=== PATIENT | male | born 2000 | race African-American/Black ===

== ENCOUNTER 2024-06-30 16:37 | Observation (INO) | payer SELFPAY ==
[~2024-06-30] VITALS: Ht 188 cm; Wt 100.6 kg
[2024-06-30 17:19] LABS: BASO % 0.7 % (0.0-2.0); EOS # 0.1 K/mm3 (0.0-0.7); EOS % 1.6 % (0.0-4.0); GRAN % 70.9 % (42.2-75.2); HEMATOCRIT 43.6 % (42.0-52.0); HEMOGLOBIN 15.4 g/dl (13.5-18.0); LYMPH # 0.9 K/mm3 (1.2-3.4); LYMPH % 15.4 % (20.0-51.0); MEAN CELL VOLUME 90 fl (80.0-100.0); MEAN CORPUSCULAR HEMOGLOBIN 32 pg (27-31); MEAN CORPUSCULAR HGB CONC 35 g/dl (33.0-37.0); MEAN PLATELET VOLUME 10.6 fl (7.4-10.4); MONO # 0.6 K/mm3 (0.1-0.6); PLATELET COUNT 175 K/mm3 (130-400); RED BLOOD COUNT 4.85 M/mm3 (4.20-5.60)
[2024-06-30 17:37] LABS: ALBUMIN 4.2 g/dL (3.5-5.0); BILIRUBIN,TOTAL 0.6 mg/dL (0.2-1.2); CALCIUM 9.3 mg/dL (8.4-10.2); CREATININE, serum 1.54 mg/dL (0.72-1.25); POTASSIUM 3.9 mEq/L (3.5-4.5); TOTAL PROTEIN 7.6 g/dl (6.2-8.1)
[2024-06-30 17:47] LABS: TROPONIN-I 0.042 ng/mL (0.00-0.033)
[2024-06-30] MEDS ORDERED: Heparin/D5W 250 ML IV SCH (18:45)
[2024-06-30] MEDS ORDERED: Heparin 5,000 UNITS/ML 1 ML VIAL IV ONE (18:45)
[2024-06-30] MEDS ORDERED: Heparin 5,000 UNITS/ML 1 ML VIAL IV PRN (18:45)
[2024-06-30 19:13] LABS: INR 1.2 (0.8-3.0); PROTHROMBIN TIME 13.1 SECONDS (9.7-12.8)
[2024-06-30 19:15] LABS: PARTIAL THROMBOPLASTIN TIME 35.2 SECONDS (26.0-37.0)
[2024-06-30] MEDS ORDERED: Mag/Al Hydrox/Simeth Susp 30 ML CUP PO PRN (19:30)
[2024-06-30] MEDS ORDERED: Magnes Hydrox (MOM) 80 MG/ML 30 ML CUP PO PRN (19:30)
[2024-06-30] MEDS ORDERED: Promethazine 25 MG Rectal SUPP RC PRN (19:30)
[2024-06-30] MEDS ORDERED: NS 1,000 ML IV SCH (19:30)
[2024-06-30] MEDS ORDERED: Ondansetron 4 MG/2 ML VIAL IV PRN (19:30)
[2024-06-30 20:39] LABS: HEMATOCRIT 40.3 % (42.0-52.0); HEMOGLOBIN 14.7 g/dl (13.5-18.0); MEAN CELL VOLUME 87 fl (80.0-100.0); MEAN CORPUSCULAR HEMOGLOBIN 32 pg (27-31); MEAN CORPUSCULAR HGB CONC 37 g/dl (33.0-37.0); MEAN PLATELET VOLUME 9.5 fl (7.4-10.4); PLATELET COUNT 195 K/mm3 (130-400); RED BLOOD COUNT 4.62 M/mm3 (4.20-5.60)
[2024-06-30 20:56] LABS: MAGNESIUM 1.8 mg/dL (1.6-2.6)
[2024-06-30] MEDS ORDERED: Famotidine 20 MG TAB PO SCH (21:00)
[2024-06-30] MEDS ORDERED: Metoprolol Tartrate 25 MG TAB PO SCH (21:00)
[2024-06-30] MEDS ORDERED: Atorvastatin 40 MG TAB PO SCH (21:00)
[2024-06-30] MEDS ORDERED: Docusate Sodium 100 MG CAP PO SCH (21:00)
[2024-06-30] MEDS ORDERED: Melatonin 3 MG TAB PO PRN (21:00)
[2024-06-30] MEDS ORDERED: WELLBUTRIN XL150 MG PO (23:56)
[2024-06-30] MEDS ORDERED: CAPLYTA42 MG PO (23:57)
[2024-07-01] VITALS (11 sets, daily range): BP systolic 124–160; BP diastolic 68–82; PULSE 61–68; TEMP 97.7–98.5
[2024-07-01] MEDS ORDERED: Iohexol 350 - 100 ML VIAL IV ONE (00:50)
[2024-07-01] MEDS ORDERED: NS 100 ML IV ONE (00:51)
[2024-07-01] MEDS ORDERED: Patient's Own Medication Item PO SCH (01:00)
--- NOTE | 2024-07-01 05:11 | NUR ---
Received report from ER nurse Diane at 0040. Pt arrived on the unit at 0100. Pt is alert and able to move themselves around the room independantly. Pt has heparin and IVF's running at this time. Assessment intake and physical has been done. Pharmacy, med rec, and allergies are done as well. Pt is currently showering at this time. Pt denies chest pain at this time. Will continue with pt care and will give report to day shift nurse.
--- NOTE | 2024-07-01 06:36 | NUR ---
Pt had an uneventful night. Pt denies chest pain. Pt on IVF's and heparin drip at this time. Pt had a shower early this morning. Pt is currently in bed with call light within reach. Will give report to day shift nurse.
--- NOTE | 2024-07-01 08:00 | NUR ---
PT LAYING IN BED. SAT UP FOR ASSESSMENT. ORIENTED X4. MORNING MEDS GIVEN. REPORTS STOMACH DISCOMFORT DUE TO HUNGER. INFORMED PT ON NPO STATUS WHILE AWAITING UPCOMING ECHO. PT UNDERSTOOD. NO OTHER COMPLAINTS AT THIS TIME. FALL PRECAUTIONS IN PLACE, CALL LIGHT IN REACH.
[2024-07-01] MEDS ORDERED: Influenza Virus Vaccine, Trivalent '24-25 0.5 ML SYRINGE IM SCH (09:00)
[2024-07-01] MEDS ORDERED: buPROPion XL (24-HR) 150 MG TAB PO SCH (09:00)
[2024-07-01 09:40] LABS: BASO % 0.6 % (0.0-2.0); EOS # 0.2 K/mm3 (0.0-0.7); EOS % 3.1 % (0.0-4.0); GRAN # 2.8 K/mm3 (1.4-6.5); GRAN % 57.2 % (42.2-75.2); HEMATOCRIT 43.5 % (42.0-52.0); HEMOGLOBIN 15.3 g/dl (13.5-18.0); LYMPH # 1.2 K/mm3 (1.2-3.4); LYMPH % 25.3 % (20.0-51.0); MEAN CELL VOLUME 90 fl (80.0-100.0); MEAN CORPUSCULAR HEMOGLOBIN 32 pg (27-31); MEAN CORPUSCULAR HGB CONC 35 g/dl (33.0-37.0); MONO # 0.6 K/mm3 (0.1-0.6); PLATELET COUNT 185 K/mm3 (130-400); RED BLOOD COUNT 4.84 M/mm3 (4.20-5.60); REDCELL DISTRIBUTION WIDTH-CV 12.1 % (11.5-14.5)
[2024-07-01 09:56] LABS: CALCIUM 9.7 mg/dL (8.4-10.2); CHOLESTEROL RISK RATIO 1.5; CREATININE, serum 1.58 mg/dL (0.72-1.25); POTASSIUM 4.6 mEq/L (3.5-4.5)
[2024-07-01 10:03] LABS: TROPONIN-I 0.019 ng/mL (0.00-0.033)
--- NOTE | 2024-07-01 10:51 | NUR ---
building construction ironworker met with patient and his significant other, Deandra, Dawna# [phone], to discuss discharge planning. Patient does not have insurance and does not currently have a PCP. Patient reported he tried to get into [facility] but the earliest appointment is in August. JAVIER provided information about [facility] and patient is interested in going to that clinic for primary services. Pharmacy is [facility]. No issues affording medications. No DPOA-HC and is not currently interested in completing one while in the hospital. No DME. Patient reports to be independent with ADLS and has a form of transportation to get to and from appointments. Patient would like to return home at time of discharge. Patient asked about information for food assistance in the community. JAVIER provided information for [employer], [facility] [employer], [employer] and encouraged him to apply for food stamps. Patient reported he applied online for food stamps but was struggling to reach them via telephone to get his application approved. Patient reported no new DME and no other supports or services that needed to be implemented prior to discharge. JAVIER notified community education specialist patient would like to be set up at [facility] prior to discharge. document clerk will attempt to schedule the appointment prior to discharge if possible. Patient has the contact information for the clinic for future follow ups. Discharge plan: Home
--- NOTE | 2024-07-01 14:58 | NUR ---
Initial visit; Patient and girlfriend greeted Senior System Operator and New thanked her for offering Spiritual Care and good wishes for a Happy Thanksgiving.
--- NOTE | 2024-07-01 15:28 | NUR ---
SW participated in multidisciplinary team meeting to discuss patient's progress and discharge plan. The discharge plan is for patient to return home, pending echocardiogram. Team members in agreement with this plan. Discharge plan: Home
--- NOTE | 2024-07-01 18:50 | NUR ---
DISCUSSED DISCHARGE PAPERWORK WITH PT. NO QUESTIONS OR CONCERNS AT THIS TIME. DC'D IV. PT WALKED WITH HIS BELONGINGS AND SIGNIFICANT OTHER OUT OF THE SURG FLOOR.
== END 2024-07-01 18:00 | disposition home or self-care (01) ==
LOC: COL.ER 16:37 → SURG 07-01 00:09
PROVIDERS: Emergency Medicine; Nurse Practitioner Family; ADMIT Hospitalist
DX: I21.4 Non-ST elevation (NSTEMI) myocardial infarction (principal); I10 Essential (primary) hypertension; J90 Pleural effusion, not elsewhere classified; I36.1 Nonrheumatic tricuspid (valve) insufficiency; I37.1 Nonrheumatic pulmonary valve insufficiency; R74.01 Elevation of levels of liver transaminase levels; F41.9 Anxiety disorder, unspecified; F32.A Depression, unspecified; F15.20 Other stimulant dependence, uncomplicated; F17.290 Nicotine dependence, other tobacco product, uncomplicated; Z79.899 Other long term (current) drug therapy; Z79.82 Long term (current) use of aspirin
CPT/HCPCS: G0378; J1644; J7030; Q9967